=== PATIENT | male | born 2000 | race Caucasian/White ===

== ENCOUNTER 2021-10-04 06:35 | Emergency (ER) | payer SELFPAY ==
[2021-10-04] MEDS ORDERED: Mag-Al Plus 1200 MG/1200 MG/120 MG/30 ML UDCUP ONE (07:09)
[2021-10-04] MEDS ORDERED: Lidocaine Viscous Sol 2% 15 ml UD Cup ONE (07:09)
[2021-10-04 21:11] LABS: SARS-CoV-2 PCR by NAA Not Detected (NotDetected)
== END 2021-10-04 07:54 | disposition home or self-care (01) ==
LOC: MADERS 06:35
DX: R06.02 Shortness of breath (principal); R11.0 Nausea; R05.9 Cough, unspecified; K21.9 Gastro-esophageal reflux disease without esophagitis; Z20.822 Contact with and (suspected) exposure to COVID-19; F17.210 Nicotine dependence, cigarettes, uncomplicated
CPT/HCPCS: 71046; U0003; U0005